=== PATIENT | female | born 1955 | race Caucasian/White ===

== ENCOUNTER 2017-02-13 07:45 | Emergency (ER) | payer OTHER ==
[~2017-02-13] VITALS: Ht 157.5 cm; Wt 73.9 kg
[2017-02-13 07:49] VITALS: BP 165/85
--- NOTE | 2017-02-13 07:54 | ED EYE COMPLAINT ---
History of Present Illness General Chief Complaint: Eye Problems Stated Complaint: R EYE SWELLING Source: patient, old records Exam Limitations: no limitations Vital Signs & Intake/Output Vital Signs & Intake/Output Vital Signs Date Time Temp Pulse Resp B/P Pulse O2 O2 Flow FiO2 Ox Delivery Rate 02/13 0749 97.0 65 20 165/85 98 Room Air Allergies Coded Allergies: NO KNOWN ALLERGIES (06/07/12) Reconcile Medications Cephalexin (Keflex) 500 MG CAPSULE 1 CAP PO TID INFECTION Losartan Potassium 25 MG TABLET 1 TAB PO DAILY HTN (Reported) Polytrim (Polytrim Eye Drops) 10,000 UNIT-1 MG/ML DROPS 1 GTT OPH Q6 INFECITON Triage Note: RIGHT EYE SWELLING SINCE SATURDAY. MUCH WORSE TODAY. PT DENIES ITCHINESS BUT STATES SHE THINKS SHE HAS A STYE Triage Nurses Notes Reviewed? yes Onset: Gradual Duration: day(s): (4), constant Timing: recent history Injury Environment: home Severity: mild Severity Numbers: 4 No Modifying Factors: none Right Eye Associated Symptoms: itching HPI: 61-year-old female history of hypertension presents complaining of atraumatic right upper eyelid swelling redness for the past 4 days. She wears contact lens , denies any known injury or trauma however, she denies foreign body sensation. She states that today she noticed a small "gomez" on her eyelash, and reports to crusting when she woke up this morning. She reports itchiness however denies pain vision loss fever chills. She denies any left eye association no rhinorrhea congestion and facial swelling or pain otherwise no headaches she has not taken anything for symptoms she's been applying warm compresses without improvement (CHHAYA MARTINEZ) Past History Travel History Traveled to [place] past 21 day No Medical History Any Pertinent Medical History? see below for history Cardiovascular: hypertension Surgical History Surgical History: non-contributory Psychosocial History What is your primary language Puerto Rican Tobacco Use: Current Daily Use Daily Tobacco Use Amount/Type: => 5 Cigarettes daily ETOH Use: occasional use Illicit Drug Use: denies illicit drug use Family History Hx Contributory? No (CHHAYA MARTINEZ) Review of Systems Review of Systems Constitutional: Reports: see HPI. All Other Systems: Reviewed and Negative Comments Review of systems: See HPI, All other systems negative. Constitutional, no chills no fever, no malaise HEENT: No visual changes no sore throat no congestion Cardiovascular: No chest pain , no palpitation Skin, no rashes, no change in skin Respiratory: No dyspnea no cough no sputum GI: No nausea no vomiting, no diarrhea, : No dysuria No hematuria, Muscle skeletal: No joint pain, no back pain, no neck pain, Neurologic: No numbness no headache Psych: No stress Heme/endocrine: No bruising no bleeding Immunology: No lymphadenopathy (CHHAYA MARTINEZ) Physical Exam General Appearance: well developed/nourished, no apparent distress, alert General Inspection: normal inspection Eyelid: normal inspection Conjunctiva/Sclera: normal inspection Cornea: normal inspection EOM: intact Pupil: normal accommodation, normal pupil, PERRL General Inspection: normal inspection Eyelid: everted for exam, edema, erythema Conjunctiva/Sclera: normal inspection Cornea: normal inspection EOM: intact Pupil: normal accommodation, normal pupil, PERRL Physical Exam Comments: Well-developed well-nourished patient in no apparent distress. Head/Face: Atraumatic, no maxillary/frontal sinus tenderness, no facial swelling Eyes: PERRL, EOMI, no conjunctival injection. No nystagmus the eyelids were everted there is no visualized foreign body, there is mild to moderate upper right eyelid edema erythema nontender no evidence of entrapment Ear:External auditory canals clear Nose: atraumatic.Normal inspection Throat: Moist mucous membranes.Pharynx normal. No pharyngeal erythema/exudate seen. No stridor/drooling or assymetry. No swelling or edema. Neck: Supple, no lymphadenopathy, FROM Back: FROM, Nontender Cardiovascular: Regular rate and rhythms no murmurs Respiratory: No respiratory distress. Patient speaking in full complete sentences. Breath sounds clear to auscultation bilaterally: NO W/R/R Extremities: full range of motion Neuro: Alert and oriented x3 Skin: Warm & dry;No appreciable rash on exposed skin Psych: Mood affect normal, normal memory normal judgment. (CHHAYA MARTINEZ) Progress Differential Diagnosis: corneal abrasion, corneal foreign body, conjunctivitis, detached retina, glaucoma, CHALAZION, HORDEOLUM Plan of Care: Discussed with the patient there is a possibility of foreign body not seen on examination and close follow-up with her grader marker this week advised her to refrain from contact lens use. Prescriptions for ABX provided advised warm compresses, return anytime sooner if any concerns answered all her questions she feels splint (CHHAYA MARTINEZ) Departure Departure Time of Disposition: 0800 Disposition: HOME OR SELF CARE Condition: Stable Clinical Impression Primary Impression: Chalazion of right eye Referrals: CHRISTA DILL,RAÚL Additional Instructions: POLYTRIM EYE DROPS, KEFLEX DIRECTED. CONTINUE WITH WARM COMPRESSES, AND REFRAIN FROM WEARING CONTACTS UNTIL INFECTION RESOLVES. FOLLOW UP WITH YOUR EYE DOCTOR OR RETURN WITH ANY CONCERNS. YOUR PRESCRIPTIONS WERE SENT TO [facility] MONDRAG[facility]. Departure Forms: Customer Survey General Discharge Information Prescriptions: Current Visit Scripts Polytrim (Polytrim Eye Drops) 1 GTT OPH Q6 #10 ML Cephalexin (Keflex) 1 CAP PO TID #21 CAP (CHHAYA MARTINEZ) PA/MANAGER OF MAINTENANCE Co-Sign Statement Statement: ED Attending supervision documentation- x I saw and evaluated the patient. I have also reviewed all the pertinent lab results and diagnostic results. I agree with the findings and the plan of care as documented in the PA's/MANAGER OF MAINTENANCE's documentation. [] I have reviewed the ED Record and agree with the PA's/MANAGER OF MAINTENANCE's documentation. [] Additions or exceptions (if any) to the PAs/MANAGER OF MAINTENANCE's note and plan are summarized below: [] (TODD DILL,NANCY)
[2017-02-13] MEDS ORDERED: LOSARTAN POTASS25 M1 PO (07:56)
[2017-02-13] MEDS ORDERED: KEFLEX500 M1 PO (08:02)
[2017-02-13] MEDS ORDERED: POLYTRIM EYE DR10 ML OPH (08:02)
== END 2017-02-13 08:21 ==
LOC: ERH 07:45
DX: H00.11 Chalazion right upper eyelid (principal)

== ENCOUNTER 2017-12-28 19:25 | Emergency (ER) | payer OTHER ==
[~2017-12-28 19:25] MED LIST: KEFLEX500 M1 PO; LOSARTAN POTASS25 M1 PO; POLYTRIM EYE DR10 ML OPH
--- NOTE | 2017-12-28 19:45 | ED DYSPNEA/ASTHMA COMPLAINT ---
History of Present Illness General Chief Complaint: Fever Stated Complaint: FEVER,CHILLS Source: patient Exam Limitations: no limitations Vital Signs & Intake/Output Vital Signs & Intake/Output Vital Signs Date Time Temp Pulse Resp B/P B/P Pulse O2 O2 Flow FiO2 Mean Ox Delivery Rate 12/28 2000 Room Air 12/28 1954 96 12/28 1929 99.0 74 22 158/71 97 Allergies Coded Allergies: NO KNOWN ALLERGIES (09/05/17) Reconcile Medications Albuterol Sulfate (Ventolin Hfa) 90 MCG HFA.AER.AD 2 PUF INH Q4-6 PRN PRN wheeze, cough Losartan Potassium 25 MG TABLET 1 TAB PO DAILY HTN (Reported) Oseltamivir Phosphate (Tamiflu) 75 MG CAPSULE 1 CAP PO BID influenza Triage Note: PER PT FEVER SINCE YESTERDAY ON AND OFF LAST TYLENOL YESTERDAY PM. ALSO CO WHEEZES WITH EXHALATION NO ACUTE RESP DISTRESS Triage Nurses Notes Reviewed? yes Onset: Gradual Duration: day(s):, waxing and waning Timing: recent history Severity: mild Activities at Onset: none Prior Episodes/Possible Cause: no prior episodes Associated Symptoms: cough, wheezing HPI: 62 YO woman, current smoker, no flu vaccine this year, presents with 2 days of cough, wheezing, phlegm, temp to 101.2 yesterday. She notes that she has been taking care of her grandchild and mother who were both flu +. "I feel phlegm in my chest." She notes no chest pain, dizziness, syncopal symptoms. Past History Travel History Traveled to [place] past 21 day No Medical History Any Pertinent Medical History? see below for history Neurological: NONE EENT: NONE Cardiovascular: hypertension Respiratory: NONE Gastrointestinal: NONE Hepatic: NONE Renal: NONE Musculoskeletal: NONE Psychiatric: NONE Endocrine: NONE Surgical History Surgical History: non-contributory Psychosocial History What is your primary language Setswana Tobacco Use: Current Daily Use Daily Tobacco Use Amount/Type: => 5 Cigarettes daily Family History Hx Contributory? No Review of Systems Review of Systems Constitutional: Reports: no symptoms. EENTM: Reports: no symptoms. Respiratory: Reports: no symptoms. Cardiovascular: Reports: no symptoms. GI: Reports: no symptoms. Genitourinary: Reports: no symptoms. Musculoskeletal: Reports: no symptoms. Skin: Reports: no symptoms. Neurological/Psychological: Reports: no symptoms. Hematologic/Endocrine: Reports: no symptoms. Immunologic/Allergic: Reports: no symptoms. All Other Systems: Reviewed and Negative Physical Exam Physical Exam General Appearance: well developed/nourished, no apparent distress Head: atraumatic, normal appearance Eyes: Bilateral: normal appearance. Ears, Nose, Throat: normal pharynx, normal ENT inspection Neck: normal inspection, supple, full range of motion Respiratory: rhonchi Cardiovascular: regular rate/rhythm Gastrointestinal: normal bowel sounds, soft, non-tender, no organomegaly Extremities: normal inspection, normal capillary refill, normal range of motion, no edema Neurologic/Psych: no motor/sensory deficits, awake, alert, oriented x 3 Skin: intact, normal color, warm/dry Core Measures ACS in differential dx? No CVA/TIA Diagnosis No Sepsis Present: No Sepsis Focused Exam Completed? No Progress Differential Diagnosis: asthma, bronchitis, COPD Plan of Care: Orders Procedure Date/time Status RAPID VIRAL INFLUENZA A 12/28 1945 Complete Microbiology 12/28 1958 NASOPHARYN: Influenza Virus A & B Rapid Smear - COMP INFLUENZA TYPE B Initial ED EKG: none Departure Departure Disposition: HOME OR SELF CARE Condition: Stable Clinical Impression Primary Impression: Bronchitis Referrals: Rashad Beatty MD (PCP/Family) Departure Forms: Customer Survey General Discharge Information Prescriptions: Current Visit Scripts Oseltamivir Phosphate (Tamiflu) 1 CAP PO BID #10 CAP Albuterol Sulfate (Ventolin Hfa) 2 PUF INH Q4-6 PRN PRN wheeze, cough #1 INHAL Comments 12/28/17, 20:40... pt feeling well, stable 02 sat, vitals, influenza +... sent rx for tamiflu to pharmacy, answered all questions. pt safe for discharge. Close follow up advised. Critical Care Note Critical Care Note Critical Care Time: non-applicable
[2017-12-28] MEDS ORDERED: VENTOLIN HFA18 GM INH (20:32)
[2017-12-28] MEDS ORDERED: TAMIFLU75 M1 PO (20:32)
[2017-12-28 20:42] VITALS: BP 148/70
== END 2017-12-28 20:42 ==
LOC: ERH 19:25
DX: J40 Bronchitis, not specified as acute or chronic (principal); Z72.0 Tobacco use
CPT/HCPCS: 87804; 87804-59